=== PATIENT | male | born 1975 | race Caucasian/White ===

== ENCOUNTER 2017-10-04 11:35 | Observation (INO) | payer OTHER, SELFPAY ==
[2017-10-04] VITALS (9 sets, daily range): BP systolic 109–129; BP diastolic 59–87; PULSE 57–77; RESP 16–20; TEMP 36.2–37.2; O2SAT 95–99; BMI 22.8
--- NOTE | 2017-10-04 12:11 | RAD_ITS ---
STUDY: X-RAY - RIGHT KNEE REASON FOR EXAM: Male, 41 years old. Laceration. TECHNIQUE: 3 view(s) of the knee. COMPARISON: None. FINDINGS: Normal visualized distal femur. Normal visualized proximal tibia and fibula. Normal proximal tibiofibular articulation. There is no demonstrated fracture. Normal medial femorotibial compartment. Normal lateral femorotibial compartment. Normal patellofemoral articulation. There is soft tissue injury. There is air in the joint in the suprapatellar region. RAD/Knee 3 Views IMPRESSION: Soft tissue injury with air in the joint space. Electronically Signed: Andre Rowley MD at 13:11 EDT , Service support ,
--- NOTE | 2017-10-04 13:08 | ED.DEP ---
ED Disposition - Plan for ED Patient: Chief Complaint: Trauma Instructions: ED Laceration All Referrals: Micah Disla III, MD [Primary Care Provider] -
--- NOTE | 2017-10-04 13:14 | ED.DEP ---
ED Disposition - Plan for ED Patient: Chief Complaint: Trauma Instructions: ED Laceration All Prescriptions: Cephalexin [Keflex] 500 mg PO BID #20 capsule Referrals: Micah Disla III, MD [Primary Care Provider] -
--- NOTE | 2017-10-04 13:19 | ED.DCSUM_ITS ---
- ER Visit Summary Date of Service: 10/04/17 Chief Complaint: Right knee injury History of Present Illness: The patient is a 41 M presenting with right knee injury. States he fell between a truck and trailer and his knee was lacerated on the trailer. His tetanus is up-to-date. He did not hit his head or lose consciousness. He has been able to ambulate with pain. Denies other injuries. Physical Examination: Vitals are stable. Patient is afebrile. Alert no acute distress. HEENT exam is unremarkable. Lungs are clear and equal bilaterally. Heart is regular rate and rhythm. Extremities 6 cm x 4 cm laceration in shape of cross inferior to right knee, active full range of motion. NVID. Skin is warm and dry. No focal neurologic deficit. Remainder of exam is unremarkable. Emergency Department Course and Treatment: Right knee xray shows soft tissue injury with air in joint space. Laceration was repaired under sterile conditions. Anesthetized with lidocaine. Irrigated with saline. 15, 4-0 simple sutures were placed. Patient tolerated this well. Discussed with Dr. Batista. After reviewing the x-ray, she would like to take him to the operating room for washout. He was given Ancef IV. He will be taken to the operating room Disposition: To OR Impression: Right knee laceration, laceration repair This note was generated with [employer] dictation software. It may contain incorrect words, spelling, and punctuation that were not noted in review of the chart prior to signing ED Disposition - Plan for ED Patient: Disposition: Home or Assisted Living Chief Complaint: Trauma Instructions: ED Laceration All Prescriptions: Cephalexin [Keflex] 500 mg PO BID #20 capsule Referrals: Micah Disla III, MD [Primary Care Provider] -
[2017-10-04] MEDS: Cephalexin 250 MG Capsule 500 MG PO (13:21)
[2017-10-04] MEDS: Cefazolin 1 GM/50 ML BAG IV ×2 (14:36→22:34)
[2017-10-04] MEDS: Mupirocin Ointment 22gm Tube 1 APPLIC (16:09)
[2017-10-04] MEDS: Bupiv/Epi 0.5% Mpf 30 ML Vial (16:10)
--- NOTE | 2017-10-04 16:21 | PCM.HP.STD ---
History of Present Illness Date of Admission: 10/04/17 The patient is a 41 year old M who got his caught leg caught between the tongue of a trailer laceration to his right knee. Patient went to the emergency room with a x-rayed him and washed them out and sutured together. Or so was called and discussed with attending ER and per ER there is no free air however x-ray that ER attending did show me so that there was free air on the lateral the patient was discharged by the ER staff however after I saw the lateral of the knee I saw the air and I did call the ER so the patient we washed out but however the patient had been discharged. Patient was called to come back and had not eaten. Patient while he was in the ER the second time did get IV antibiotics and his tetanus is up-to-date. [] Past Medical History Allergies No Known Allergies Allergy (Verified 10/04/17 11:36) Home Medications: Ambulatory Orders Medication Instructions Recorded Cephalexin [Keflex] 500 mg PO BID #20 capsule 10/04/17 Hydrocodone/Acetaminophen [[place] 1 each PO Q6H PRN PRN 5 Days #30 10/04/17 5-325 Tablet] tablet Surgical History: no surgical history Smoking Status: Current some day smoker Alcohol: None, Rare - *Family History Maternal History Items: No pertinent history Review of Systems Constitutional: Denies: Chills, Fever, Weight Change HEENT: Denies: Head Aches, Sinus Congestion, Sinus Drainage Cardiovascular: Denies: Chest Pain, Palpitations Respiratory: Denies: Cough, Shortness of breath at rest, Sputum production Gastrointestinal: Denies: Abdominal Pain, Nausea, Vomiting Genitourinary: Denies: Dysuria Musculoskeletal: Reports: Leg Pain - No intra-articular knee pain however pain at laceration site. Denies: Joint Pain, Joint Tenderness Skin: Denies: Rash, Wounds Neurological: Denies: Numbness, Tingling, Focal weakness Psychiatric: Denies: Anxiety, Depression, Homicidal Ideations, Suicidal Ideations Hematologic/ Lymphatic: Denies: Easy Bruising, Easy Bleeding VTE Information - Inpt Only VTE Present on Admission: No VTE Mechan Device Prophylaxis: SCD's VTE Pharm Prophylaxis ordered?: No Reason prophylaxis not ordered:: Treatment Not Indicated - Physical Exam General: Alert, Oriented x3, Cooperative HEENT: Atraumatic, PERRLA, EOMI, Normocephalic Neck: Supple, No JVD, Negative Carotid Bruits Lungs: Clear to auscultation, Normal air movement Cardiovascular: Regular rate, No murmurs Abdomen: Bowel Sounds Present, Soft, Non Tender Extremities: No edema, Capillary Refill Less than 3 Seconds Skin: No rashes, No breakdown Musculoskeletal: Tenderness - At site of incision no numbness or tingling around incision no calf pain, no knee pain with flexion extension, Neurological: Cranial nerves II-XII grossly intact Psych/Mental Status: Normal Affect, Appropriate Vital Signs Temp Pulse Resp BP Pulse Ox 97.2 F L 63 18 124/85 H 98 10/04/17 11:37 10/04/17 13:30 10/04/17 13:30 10/04/17 13:30 10/04/17 13:30 Oxygen Delivery Method Room Air Weight: 150 lb Body Mass Index (BMI) 22.8 Assessment/Plan All Active Problems Laceration of knee (Acute) Laceration of right knee with intra-articular free air Patient taken emergently to the OR for I&D and the intra-articular washout Antibiotics and tetanus up-to-date in the ER Wrist benefits alternatives surgery was discussed with patient risks including but not limited to blood loss, blood clot, infection, neurovascular injury, failure procedure, loss of life and loss of limb. Patient is aware like like proceed with right knee arthroscopy irrigation debridement repair is indicated. Patient will be held overnight depending upon our evaluation of contamination of the intra-articular aspect of the knee he was received at least 24 hours of IV antibiotics and then possibly sent home on a week's worth of p.o. antibiotics Weight-bear as tolerated right leg Drain removed tomorrow morning Follow-up follow-up in the office on Thursday Call with increased pain numbness tingling further issues arise Dragon disclaimer This note was generated with [employer] dictation software. It may contain incorrect words, spelling, and punctuation that were not noted in checking the note before signing.
--- NOTE | 2017-10-04 16:29 | PCM.DC.ORTHO ---
Discharge Diet: No Restrictions - leave dressing intact, follow up on thursday in my office, call with concerns, take antibiotics given in ED starting on thursday, call with fever, chills or other constitutional symptoms Discharge Activity: May Not Drive May shower in (days): 1 Ice area for (Minutes): 20 - Every hour while awake. Weight Bearing Status: Weight bearing as tolerated Keep extremity elevated above heart level: Operative Extremity Call your doctor if your incision/area has: Continuous Slow Oozing, Sudden Increased Bleeding, Increased Pain/ Swelling, Increased Redness, Foul Smelling Discharge Call your doctor if you observe: Fever of 101 or Higher, Coldness, Increased Pain, Numbness or Tingling, Change in Color, Calf discomfort Instructions: ED Laceration All Allergies/Adverse Reactions: Allergies No Known Allergies Allergy (Verified 10/04/17 11:36) Medications to take at Discharge Cephalexin [Keflex] 500 mg PO BID #20 capsule 10/04/17 Hydrocodone/Acetaminophen [[place] 5-325 Tablet] 1 each PO Q6H PRN PRN 5 Days #30 tablet 10/04/17 The following prescriptions were given: Hydrocodone/Acetaminophen [[place] 5-325 Tablet] 1 each PO Q6H PRN PRN 5 Days #30 tablet PRN Reason: Pain Cephalexin [Keflex] 500 mg PO BID #20 capsule Primary Care Physician: Micah Disla III, MD [Primary Care Provider] - Test Results: Test results from this visit will be discussed in further detail at your follow-up appointment, if applicable. Please Follow Up With: Zainab Batista, - [phone]
--- NOTE | 2017-10-04 16:35 | OP.PCM_ITS ---
Report of Operation Date of Procedure: 10/04/17 Pre-Operative Diagnosis: right knee laceration with intraarticular free air Post-Operative Diagnosis: same plus mfc chondral lesion Surgery/Procedure Performed:: sark, irrigation/debridement laceration and intraarticular knee, mfc chondroplasty, repair and revision of laceration Type of Anesthesia:: General Anesthesiologist: Denisa Winslow Specimen's removed: none Drains: ashley, not sewed Fluids Replaced: 1000ml lr Description of Procedure: Preop note Patient is a 41-year-old male who sustained a laceration over his right knee x- rays showed interarticular and air patient was taken emergently to the OR. Wrist benefits alternatives surgery discussed with patient. Risks including but not limited to blood loss, blood clot, infection, neurovascular injury, failure procedure, loss of life and loss of limb. Patient received IV antibiotics in the ER and his tetanus is up-to-date. Patient is neuro intact his other constitutional symptoms. Next operative note Patient seen and examined preoperative holding area. Knee with right knee was marked. She was brought to the operating room placed supine on the operating table. Signing, anesthesia was administered. The right knee was prepped and draped with a tourniquet around his upper thigh. His leg was then elevated sugars raised her pressure to 50 torr. Timeout was performed. We then further debrided out his previous laceration which have been sewed by the ER please note that we take the stitches out prior to prepping him. We then created a standard anterior lateral portal and then washed him out intra-articularly Godwin with a knee arthroscopy. We could visualize the entrance into the knee from his laceration at the level of the medial femoral condyle. We also noted that when he did lacerate into the knee he had disrupted some of the nonarticular cartilage then used this site on the medial aspect of his joint line and to gain access into the knee and inserted a shaver and then gently debrided back the loose pieces of cartilage on his medial femoral condyle. We then further he continued to irrigate and debride the intra-articular right knee after this was done about 5500 L were then moved again back to the laceration which was further irrigated with the remaining 500 cc of saline please note that throughout the entire case though that the fluid was leaking out of the knee and irrigating at the site of the laceration so more than 500 probably used to irrigate that laceration as well. We then gently debrided back the laceration trimmed of any loose edges and then reapproximated the skin edges. The portals closed as well. We then placed an intra-articular drain. Sterile dressings were applied a tourniquet was deflated for total working time of 30 minutes. Patient tolerated procedure well there are no no comp occasions patient transferred to recovery room in stable condition. Patient Post postoperative note 24 hours of IV antibiotics and the patient will continue his p.o. antibiotics at home as this is not a can certainly dirty wound next Follow-up on Thursday Weight-bear as tolerated We will consult wound care so that they can remove his drain evaluate his wound tomorrow morning and see if there is further evaluation in Patient will be admitted for 23 hour obvious Weight-bear as tolerated Call with increased pain numbness tingling further issues arise This note was generated with [employer] dictation software. It may contain incorrect words, spelling, and punctuation that were not noted in checking the note before signing.
[2017-10-04] MEDS: HYDROcodone Bitartrate/Apap 5/325 Tablet PO (20:35)
[2017-10-04] MEDS: Aspirin 325 MG Tablet PO (22:34)
[2017-10-04] MEDS: 0.9% NaCl Peripheral Flush Adult/Peds IV (23:40)
[2017-10-05 02:40] VITALS: BP 111/42; PULSE 60; RESP 16; TEMP 36.6; O2SAT 98
[2017-10-05] MEDS: HYDROcodone Bitartrate/Apap 5/325 Tablet PO ×2 (02:42→08:53)
[2017-10-05] MEDS: Cefazolin 1 GM/50 ML BAG IV (06:10)
[2017-10-05] MEDS: 0.9% NaCl Peripheral Flush Adult/Peds IV ×2 (06:10→07:29)
[2017-10-05] MEDS: Aspirin 325 MG Tablet PO (08:53)
[2017-10-05 09:00] VITALS: BP 114/63; PULSE 72; RESP 16; TEMP 36.6; O2SAT 96
== END 2017-10-05 10:59 | disposition home or self-care (01) ==
LOC: ED 13:36 → SDC 14:36 → MS3 17:05 → SDC 10-05 07:33 → MS3 10-05 07:33
PROVIDERS: Admitting Provider Orthopaedic Surgery; Emergency Provider Emergency Medicine; Family Provider Family Medicine; PCP Family Medicine; Visit Provider Orthopaedic Surgery
PROC: (CPT 29870; principal; 2017-10-04 14:56)
DX: S81.011A Laceration without foreign body, right knee, initial encounter (principal); V88.8XXA Person injured in other specified noncollision transport accidents involving motor vehicle, nontraffic, initial encounter; Y92.9 Unspecified place or not applicable; F17.200 Nicotine dependence, unspecified, uncomplicated
CPT/HCPCS: 12004; 29877; 73562; 96365; 96366; 99218; 99285; J7030; A4216; G0378; J2405

== ENCOUNTER 2018-08-01 09:34 | Emergency (ER) | payer OTHER, SELFPAY ==
[2018-08-01 09:35] VITALS: BP 126/87; PULSE 66; RESP 18; TEMP 36.3; O2SAT 99; BMI 22.0
--- NOTE | 2018-08-01 10:01 | ED.DCSUM_ITS ---
History of Present Illness Chief Complaint: Nausea/Vomiting Informant: Patient Onset: Today Context: Sudden Onset Timing: Continuous Quality: Headache, nausea and vomiting sense of unwellness Location: Generalized Current Severity: Mild Maximum Severity: Moderate Worsened by: alcohol consumption Relieved by: Nothing Associated Symptoms: Headache, blurred vision, nausea and vomiting and feeling ill Narrative: Patient is a 42-year-old male who states he drank heavily last evening. He awoke this morning with headache, neck discomfort, nausea and vomiting and not feeling well. There is no history of trauma or fall. He did complain of harleen rred vision. He denies double vision. He denies trouble with speech or swallowing. He denies cardiac respiratory symptoms. He denies black or maroon stool. He denies orthostatic symptoms. He reports no allergies. - Past Medical History (1) No significant past medical history Status: Acute Past Medical History - Allergies and Home Meds Allergies/Adverse Reactions: Allergies No Known Allergies Allergy (Verified 08/01/18 09:39) Primary Care Physician: Micah Disla III, MD [Primary Care Provider] - Prior records reviewed: Yes Past Medical History: None Surgical History: no surgical history Lives: Spouse/ Significant Other, With Family Smoking Status: Former smoker Alcohol: Occasional Drugs: None - Family History Maternal Family History: Reports: No pertinent history Review of Systems General: Denies: Chills, Fever, Sweats Eyes: Reports: Blurred Vision - bilaterally. Denies: Visual changes - bilaterally, Diplopia ENT: Denies: Bilateral ear pain, Rhinorrhea, Sore throat Cardiovascular: Denies: Chest pain, Palpitations Respiratory: Denies: Dyspnea, Cough, Dyspnea on exertion Gastrointestinal: Reports: Abdominal pain, Nausea. Denies: Vomiting, Diarrhea, Melena, Hematochezia Genitourinary: Denies: Dysuria, Hematuria, Frequency Musculoskeletal: Reports: Neck pain. Denies: Myalgias, Arthralgias, Back pain, Swelling, Extremity Pain, -, - Skin: Denies: Rash, Wounds Neurological: Reports: Headache. Denies: Weakness, Parasthesia, Numbness, -, - Psych: Denies: Depression, Anxiety Hematologic: Denies: Easy bruising, Easy bleeding Allergy: Denies: Uticaria Physical Exam Vital Signs/Narrative: Vital Signs Temp Pulse Resp BP Pulse Ox 08/01/18 09:35 97.4 F L 66 18 126/87 H 99 Inital Vital Signs reviewed: Yes General: Well nourished, Well developed, No Acute Distress Head: Normocephalic, Atraumatic Eyes: Perrl, EOMI ENT: No rhinorrhea, Dry mucous membranes Neck: Supple, Nontender Cardiovascular: Regular rate, Regular rhythm, No murmurs, Normal S1, Normal S2 Respiratory: No distress, CTA bilaterally, Chest nontender Abdomen: Soft, Nontender, Nondistended, Normal bowel sounds, No masses Back: Nontender, Normal Inspection Extremities: Nontender, No edema Skin: Normal color, No rash Neurological: Alert, Oriented x3, Cranial nerves II-XII grossly intact, Normal Strength, Normal Sensation, Normal DTR Psychological: Normal affect, Normal Mood Diagnostic/Tx/Re-eval - Medical Decision Making With history of heavy consumption of alcohol which is out of the norm the patient and his constellation of symptoms feel his symptoms are secondary to alcohol consumption. Clinically is dehydrated. IV was established he received 1 L of normal saline and Zofran. Will reassess in 30 to 60 minutes. Patient was reassessed at 1040. Nausea is improved. Has no urge to urinate after first liter of normal saline. Second liter of normal saline was ordered. He complains of persistent headache. 50 mg of Toradol IV push was ordered. Will reassess in 30 to 60 minutes. Patient was reassessed at 1150. He feels markedly better. He is smiling. He has urge to urinate. Will discharge to home with appropriate home-going instructions ED Disposition - Plan for ED Patient: Disposition: Home or Assisted Living Diagnosis: Moderate dehydration, Hangover effect Instructions: ED Alcohol Intoxication Referrals: Micah Disla III, MD [Primary Care Provider] - As Needed
[2018-08-01] MEDS: 0.9% Normal Saline 1,000 ML 1000 ML IV ×2 (10:25→10:59)
[2018-08-01] MEDS: Ondansetron 4 MG/2 ML Vial IV (10:25)
[2018-08-01] MEDS: Ketorolac 15 MG/ML Vial IV (10:57)
[2018-08-01 12:37] VITALS: BP 113/65; BP 113/70; PULSE 65; RESP 14
== END 2018-08-01 12:39 | disposition home or self-care (01) ==
PROVIDERS: Emergency Provider Emergency Medicine; Family Provider Family Medicine; PCP Family Medicine
DX: E86.0 Dehydration (principal); F10.129 Alcohol abuse with intoxication, unspecified; Z87.891 Personal history of nicotine dependence
CPT/HCPCS: 96361; 96374; 96375; 99283; J7030; A4216; J2405

== ENCOUNTER → 2019-10-07 13:52 | Outpatient (CLI) | payer OTHER, SELFPAY ==
--- NOTE | 2019-10-07 13:52 | RAD_ITS ---
STUDY: X-RAY - LEFT KNEE REASON FOR EXAM: Male, 43 years old. KNEE PAIN TECHNIQUE: 4 view(s) of the knee. COMPARISON: None. FINDINGS: Normal visualized distal femur. Normal visualized proximal tibia and fibula. Normal proximal tibiofibular articulation. Normal medial femorotibial compartment. Normal lateral femorotibial compartment. Normal patellofemoral articulation. The soft tissue structures are unremarkable. RAD/Knee 4 or More Views IMPRESSION: Normal x-ray examination of the knee. Electronically Signed: Olu Molina, at 15:36 EDT , Service support ,
== END ==
PROVIDERS: PCP Family Medicine; Referring Provider Physician Assistant; Visit Provider Physician Assistant
DX: M25.562 Pain in left knee (principal)
CPT/HCPCS: 73564